=== PATIENT | male | born 1955 | race Two or more races ===

== ENCOUNTER 2025-04-15 08:22 | Emergency (ER) | payer OTHER ==
[2025-04-15] MEDS ORDERED: DERMABOND SKIN ADHESIVE TOP ONE ×2 (08:25→08:36)
[2025-04-15] MEDS ORDERED: TDAP (DIPHTH,PERTUSS(ACELL),TET VAC) 0.5 ML VIAL IMVAC ONE (08:32)
--- NOTE | 2025-04-15 09:06 | ER ---
[facility] Name: Mir Quispe Age: 69 yrs Sex: Male : 1955 Arrival Date: 04/15/2025 Time: 08:22 Bed 16 Private MD: Diagnosis: Laceration without foreign body of right index finger without damage to nail;Chronic atrial fibrillation;Vasovagal syncope Presentation: 04/15 08:25 Chief complaint: EMS states: Cut L index finger at work, when he saw the blood he ph became dizzy, pt in a-fib w/ rate between 80-120, hx of a-fib, states that he feels better. Coronavirus screen: At this time, the client does not indicate any symptoms associated with coronavirus-19. Ebola Screen: No symptoms or risks identified at this time. Initial Sepsis Screen: Does the patient meet any 2 criteria? No. Patient's initial sepsis screen is negative. Does the patient have a suspected source of infection? No. Patient's initial sepsis screen is negative. Risk Assessment: Do you want to hurt yourself or someone else? Patient reports no desire to harm self or others. Onset of symptoms was April 15, 2025. 08:25 Method Of Arrival: EMS: [facility] ph 08:25 Acuity: ANNA MARIE 3 ph Historical: - PMHx: 08:33 Atrial fibrillation; sb4 - Immunization history:: Adult Immunizations unknown. - Infectious Disease History:: Denies. - Social history:: Smoking status: unknown. Screenin:35 [facility] ED Fall Risk Assessment (Adult) History of falling in the last 3 months, ph including since admission No falls in past 3 months (0 pts) Confusion or Disorientation No (0 pts) Intoxicated or Sedated No (0 pts) Impaired Gait No (0 pts) Mobility Assist Device Used No (0 pt) Altered Elimination No (0 pt) Score/Fall Risk Level 0 - 2 = Low Risk Oriented to surroundings, Maintained a safe environment, Hourly rounding (assess needs \T\ fall precautionary measures) done, Used ambulatory aids as needed (educated on \T\ assisted with). Abuse screen: Denies threats or abuse. Denies injuries from another. Nutritional screening: No deficits noted. Tuberculosis screening: No symptoms or risk factors identified. Assessment: 08:35 General: Appears in no apparent distress. comfortable, Behavior is calm, cooperative. ph Pain: Complains of pain in palmar aspect of distal phalanx of right index finger. Neuro: Level of Consciousness is awake, alert, obeys commands, Oriented to person, place, time, situation. Cardiovascular: Denies chest pain, palpitations, Capillary refill < 3 seconds in bilateral fingers Patient's skin is warm and dry. Rhythm is atrial fibrillation. Respiratory: Airway is patent Respiratory effort is even, unlabored. GI: No signs and/or symptoms were reported involving the gastrointestinal system. Musculoskeletal: Circulation, motion, and sensation intact. Range of motion: intact in all extremities. Injury Description: Laceration sustained to palmar aspect of distal phalanx of right index finger. Vital Signs: 08:25 BP 118 / 78; Pulse 102; Resp 18; Temp 97.3; Pulse Ox 96% ; Height 5 ft. 8 in. ; ph 10:03 BP 123 / 89; Pulse 89; Resp 18; Temp 97.2; Pulse Ox 99% on R/A; ph Vitals: 10:03 Cardiac Rhythm Assessment Atrial fibrillation. ph ED Course: 08:23 Patient arrived in ED. sb4 08:23 Mildred Carrillo PA-C is [facility]. sb4 08:23 Saeid Chery MD is Attending Physician. sb4 08:24 Kimberlyn Valverde, RN is Primary Nurse. ph 08:27 Triage completed. ph 08:27 Arm band placed on. ph 08:35 Patient has correct armband on for positive identification. Bed in low position. Call ph light in reach. Side rails up X 1. monitor and storage bin tender on. Pulse ox on. NIBP on. Door closed. Noise minimized. 08:55 Wound care: to laceration located on palmar aspect of distal phalanx of right index ph finger was cleaned with Hibiclens, irrigated with normal saline, Patient tolerated well. 09:05 Assist provider with laceration repair on palmar aspect of distal phalanx of right ph index finger that was 2.5 cm. or less using Dermabond. Performed by Mildred Carrillo PA-C Patient tolerated well. Patient did not have IV access during this emergency room visit. Administered Medications: 08:46 Not Given (Patient Refused): boostrix tdap0.5 ml IM once; as a single dose ph 09:35 Drug: Metoprolol PO 25 mg PO once Route: PO; ph 10:03 Follow up: Response: No adverse reaction ph Medication: 10:04 VIS not applicable for this client. ph Outcome: 09:05 Discharge ordered by MD. willett 10:06 Discharged to home ambulatory, ph 10:06 Condition: good 10:06 Discharge instructions given to patient, Instructed on discharge instructions, follow up and referral plans. Demonstrated understanding of instructions, follow-up care, 10:07 Patient left the ED. ph Signatures: Kimberlyn Valverde RN RN Mildred Balderrama, PA-C PA-C brennon
--- NOTE | 2025-04-15 09:06 | EDPHYS ---
Physician Documentation [facility] Name: Mir Quispe Age: 69 yrs Sex: Male : 1955 Arrival Date: 04/15/2025 Time: 08:22 Bed 16 Private MD: ED Physician Saeid Chery HPI: 04/15 08:24 This 69 yrs old [place] Male presents to ER via Unassigned with complaints of syncope, sb4 laceration. 08:24 Patient states that he accidentally cut his finger this morning and at the site of sb4 blood had a syncopal episode. He states that this always happens when he sees blood. His employer called EMS and wanted to have him evaluated. Patient has no complaints, does not feel dizzy or weak, is ambulating just fine. Does have a history of A-fib and reports compliance with his medications, is on Xarelto, and a PRN rate controlling medication. Does not think his tetanus shot is up-to-date. Denies any chest pain or shortness of breath. Historical: - PMHx: 08:33 Atrial fibrillation; sb4 - Immunization history:: Adult Immunizations unknown. - Infectious Disease History:: Denies. - Social history:: Smoking status: unknown. ROS: 08:24 Constitutional: Negative for fever, chills, and weight loss, sb4 08:24 Skin: Positive for laceration(s), 08:24 Neuro: Positive for syncope, 08:24 All other systems are negative, Exam: 08:27 Constitutional: This is a well developed, well nourished patient who is awake, alert, sb4 and in no acute distress. Head/Face: Normocephalic, atraumatic. Eyes: Extra-ocular motions intact. Periorbital areas with no swelling, redness, or edema. ENT: Mucous membranes moist. Cardiovascular: Regular rate and rhythm with a normal S1 and S2. Respiratory: No increased work of breathing, no retractions or nasal flaring. Neuro: Awake and alert, GCS 15, oriented to person, place, time, and situation. Motor strength 5/5 in all extremities. Sensory grossly intact. 08:27 Skin: injury, laceration(s), the wound is approximately 2.5 cm(s), with a depth of .5 cm(s), of the palmar aspect of distal phalanx of rght index finger, that can be described as clean, no foreign body, linear, with mild bleeding, 08:27 Neuro: Gait: is steady, Vital Signs: 08:25 BP 118 / 78; Pulse 102; Resp 18; Temp 97.3; Pulse Ox 96% ; Height 5 ft. 8 in. ; ph 10:03 BP 123 / 89; Pulse 89; Resp 18; Temp 97.2; Pulse Ox 99% on R/A; ph Laceration: 08:50 Wound Repair of 2.5cm ( 1.0in ) subcutaneous laceration to palmar aspect of distal sb4 phalanx of right index finger. Linear shaped.. Distal neuro/vascular/tendon intact. Wound prep: Simple cleansing with hibiclenz by nurse, Wound irrigation with saline by nurse. Skin closed with thin layer Adhesive skin closure using Dermabond. Dressed with Bacitracin, non-adherent dressing. Patient tolerated well. MDM: 08:23 Medical Screening Exam initiated sb4 08:28 Refusal of service: The patient/guardian displays adequate decision making capability sb4 and despite a detailed discussion of alternatives, benefits, risks, and consequences refuses: all lab tests. 08:29 Data reviewed: vital signs, nurses notes, EMS record, and as a result, I will discharge sb4 patient. Counseling: I had a detailed discussion with the patient and/or guardian regarding the historical points, exam findings, and any diagnostic results supporting the discharge/admit diagnosis, the need for outpatient follow up, for definitive care, to return to the emergency department if symptoms worsen or persist or if there are any questions or concerns that arise at home. 09:29 ED course: Dermabond was selected for wound closure as opposed to sutures given that sb4 patient just had a vasovagal syncopal episode secondary to the site of blood. 04/15 08: Order name: EKG - Nurse/Tech; Complete Time: sb4 04/15 08: Order name: Wound Care; Complete Time: sb4 04/15 08:23 Order name: Dermabond; Complete Time: : sb4 EC:49 Rate is 116 beats/min. Rhythm is irregularly irregular, A fib. QRS interval is normal sb4 at 70 msec. QT interval is normal at 298 msec. No Q waves. T waves are Normal. No ST changes noted. Clinical impression: Atrial Fibrillation. Interpreted by me. Reviewed by me. Administered Medications: 08:46 Not Given (Patient Refused): boostrix tdap0.5 ml IM once; as a single dose ph 09:35 Drug: Metoprolol PO 25 mg PO once Route: PO; ph 10:03 Follow up: Response: No adverse reaction ph Disposition: 18:27 Co-signature as Attending Physician, Saeid Chery MD I reviewed the patient's care rn provided by the Advanced Practice Provider and agree with the diagnosis and treatment plan. Disposition Summary: 04/15/25 09:05 Discharge Ordered Notes: Location: Home sb4 Problem: new sb4 Symptoms: have improved sb4 Condition: Stable sb4 Diagnosis - Laceration without foreign body of right index finger without damage to nail sb4 - Chronic atrial fibrillation sb4 - Vasovagal syncope sb4 Followup: sb4 - With: Emergency Department - When: As needed - Reason: Trouble breathing, Worsening of condition Discharge Instructions: - Discharge Summary Sheet sb4 - Sutures, Willet, or Adhesive Wound Closure, [id number] sb4 - Atrial Fibrillation, [id number] sb4 - Vasovagal Syncope, Pediatric sb4 Forms: - Patient Portal Instructions sb4 - Leadership Thank You Letter sb4 Signatures: Saeid Chery MD MD rn Hall, Patricia, RN RN ph Brown, Sophia, PA-C PA-C sb4 Corrections: (The following items were deleted from the chart) 08:33 08:24 Patient states that he accidentally cut his finger this morning and at the site sb4 of blood had a syncopal episode. He states that this always happens when he sees blood. His employer called EMS and wanted to have him evaluated. Patient has no complaints, does not feel dizzy or weak, is ambulating just fine. Does have a history of A-fib and reports compliance with his medications, is on Xarelto. Does not think his tetanus shot is up-to-date. Denies any chest pain or shortness of breath. sb4 08:43 08:27 Skin: injury, laceration(s), the wound is approximately 2.5 cm(s), with a depth sb4 of .5 cm(s), of the palmar aspect of distal phalanx of left index finger, that can be described as clean, no foreign body, linear, with mild bleeding, sb4
[2025-04-15] MEDS ORDERED: METOPROLOL TAR 25 MG TAB ONE (09:34)
[2025-04-15 11:20] VITALS: BP 123/89; TEMP 97.2; O2SAT 99
== END 2025-04-15 10:07 | disposition home or self-care (01) ==
LOC: ER 08:22
PROC: 0JQJ0ZZ Repair Right Hand Subcutaneous Tissue and Fascia, Open Approach (ICD-10-PCS; principal; 2025-04-15)
DX: S61.210A Laceration without foreign body of right index finger without damage to nail, initial encounter (principal); R55 Syncope and collapse; I48.20 Chronic atrial fibrillation, unspecified; Z79.01 Long term (current) use of anticoagulants
CPT/HCPCS: 90715; 93005